=== PATIENT | male | born 1965 | race Caucasian/White ===

== ENCOUNTER 2018-04-08 08:12 | Emergency (ER) | payer OTHER, SELFPAY ==
[2018-04-08 08:26] VITALS: BP 170/111; PULSE 94; RESP 16; TEMP 36.9; O2SAT 100; BMI 27.2
--- NOTE | 2018-04-08 09:02 | ED.ABDPAIN ---
HPI - Abdominal Pain General Chief Complaint: Abdominal Pain Stated Complaint: RECTAL PROBLEMS Time Seen by Provider: 04/08/18 08:43 Source: patient Mode of arrival: ambulatory Limitations: no limitations History of Present Illness HPI narrative: patient is a 53 year old male who presents with rectal pain. It has been ongoing for about 4 days. He says progressively getting a little bit worse. His he feels like there is something inside his rectum. He has no painful bowel movements no bloody bowel movements. No fever or chills. As he is supposed to going to trip tomorrow that he has been planning for 2 years. he denies any nausea vomiting or abdominal pain. MD complaint: other ( Rectal pain) Onset (ago): day(s) Pain Consistency: constant Quality: fullness Associated symptoms: denies other symptoms Related Data Previous Rx's Medication Instructions Recorded levofloxacin [Levaquin] 750 mg PO DAILY #7 tab 04/08/18 metronidazole [Flagyl] 500 mg PO TID #21 tab 04/08/18 Allergies Allergy/AdvReac Type Severity Reaction Status Date / Time No Known Drug Allergies Allergy Verified 04/08/18 08:26 Review of Systems Review of Systems GENERAL: Denies chills, fatigue, malaise, fever, sweats, travel HEENT: Denies sinus pain, ear pain, sore throat, difficulty swallowing, neck pain RESPIRATORY: Denies dyspnea, cough, wheezing, hemoptysis, sputum. CARDIOVASCULAR: Denies chest pain, palpitations, orthopnea, edema GASTROINTESTINAL: see HPI : Denies dysuria, frequency, incontinence, hematuria, urinary retention, flank pain. MUSCULOSKELETAL: Denies weakness, joint pain, or bony pain SKIN: No rash, no erythema, no pruritus NEUROLOGIC: Denies weakness, dizziness, headache, numbness, change in speech, confusion PSYCHIATRIC: No concerning psychosocial issues. 12 point review of systems is negative except for those stated above and HPI PFSH Medical History Hypertension (Chronic) Social History Smoking Status: Never smoker alcohol intake: current substance use type: does not use Social History Smoking Status: Never smoker alcohol intake: current substance use type: does not use Exam Initial Vital Signs Initial Vital Signs: Vital Signs Temperature 98.5 F 04/08/18 08:26 Pulse Rate 94 H 04/08/18 08:26 Respiratory Rate 16 04/08/18 08:26 Blood Pressure 170/111 H 04/08/18 08:26 Pulse Oximetry 100 04/08/18 08:26 GENERAL: alert well-appearing male no acute distress HEENT: Head atraumatic,EOMI, pupils reactive CARDIOVASCULAR: Regular rate and rhythm without murmurs, rubs or gallops. RESPIRATORY: Breath sounds equal bilaterally, no wheezes rales or rhonchi. ABDOMEN: Soft, nontender. Normoactive bowel sounds all 4 quadrants. No guarding or rebound. RECTAL: Fullness in rectum right is 2 to 3:00 position. Nontender exterior has skin tag no hemorrhoid : No CVA tenderness EXTREMITIES: Normal range of motion, no clubbing or edema. Neurovascularly intact NEUROLOGICAL: Alert and oriented x4.Normal gait and speech. SKIN: Warm, dry, no laceration, no petechiae, no rashes or lesions. Course Orders Ordered: ED Orders 04/08/18 09:08 CT abdomen pelvis w con Stat 04/08/18 09:15 Complete Blood Count AUTO DIFF Stat Comprehensive Metabolic Panel Stat Lipase Stat Vital Signs - 8 hr 04/08/18 08:26 04/08/18 12:29 Temperature 98.5 F Pulse Rate 94 H 77 Respiratory Rate 16 18 Blood Pressure 170/111 H 156/87 H Pulse Oximetry 100 100 MDM - Abdominal Pain Lab Data Attestation: I reviewed the patient's lab results. Result diagrams: 04/08/18 09:15 04/08/18 09:15 Lab Results 04/08/18 04/08/18 Range/Units 09:15 09:15 WBC 9.1 (4.5-11.0) X10^3/uL RBC 4.80 (4.5-5.9) X10^6/uL Hgb 15.3 (13.5-17.5) g/dL Hct 43.5 (41-53) % MCV 90.7 (80-100) fL MCH 31.8 (26-34) PG MCHC 35.1 (30-36) % RDW 12.3 (11.6-14.8) % Plt Count 207 (150-400) X10^3/uL Neut % (Auto) 71.0 (50-75) % Lymph % (Auto) 19.3 L (25-40) % Prentiss % (Auto) 8.1 (3-14) % Eos % (Auto) 0.8 L (2-4) % Baso % (Auto) 0.8 (0-2) % Neut # (Auto) 6400 (9183-9789) /uL Lymph # (Auto) 1700 (6178-2506) /uL Prentiss # (Auto) 700 (0-900) /uL Eos # (Auto) 100 (0-450) /uL Baso # (Auto) 100 (0-100) /uL Sodium 137 (137-145) mmol/L Potassium 4.0 (3.4-5.1) mmol/L Chloride 100 (98-107) mmol/L Carbon Dioxide 24 (22-32) mmol/L BUN 12 (9-20) mg/dL Creatinine 0.90 (0.66-1.25) mg/dL Estimated GFR > 60.0 (>60) mL/min BUN/Creatinine Ratio 13.3 (6-22) Glucose 111 H (70-100) mg/dL Calcium 8.9 (8.4-10.2) mg/dL Total Bilirubin 0.6 (0.2-1.3) mg/dL AST 39 (17-59) IU/L ALT 58 (21-72) IU/L Alkaline Phosphatase 86 (38-126) U/L Total Protein 8.3 H (6.3-8.2) g/dL Albumin 4.6 (3.5-5.0) g/dL Globulin 3.7 (1.7-4.1) g/dL Albumin/Globulin Ratio 1.2 (1.0-2.8) Lipase 103 (23-300) U/L Imaging Data CT scan - abdomen: Radiologist's impression: PROCEDURE: CT ABDOMEN PELVIS W CON INDICATIONS: rectal pain TECHNIQUE: After the administration of oral, rectal, and intravenous contrast, 5 mm thick sections acquired from the diaphragms to the symphysis. 5 mm thick coronal and sagittal reformats were performed. For radiation dose reduction, the following was used: automated exposure control, adjustment of mA and/or kV according to patient size. COMPARISON: None. FINDINGS: Image quality: Excellent. ABDOMEN: Lung bases: Lung bases are clear. Heart size is normal. Solid organs: A small cyst in the inferior right hepatic lobe as well as additional small hypodense foci in the liver which are too small to characterize but likely represent cysts. Gallbladder appears within normal limits without calcified gallstones. Biliary system is non-dilated. Pancreas enhances normally. Spleen is normal in size and enhancement. No adrenal nodules. Kidneys demonstrate no hydronephrosis. Peritoneum and bowel: Stomach and small bowel loops are normal in caliber and wall thickness. The appendix is normal in appearance. There is mild wall thickening within the posterior aspect of the distal rectum with a peripherally enhancing indistinct perianal collection at the 6:00 position measuring approximately 1.7 x 1.4 x 2.3 cm. No evidence of extension into the ischiorectal fat. The remainder of the colon is normal in wall thickness. No intraperitoneal fluid collections. No free fluid or air. Nodes and vessels: No retroperitoneal or mesenteric adenopathy. Aorta and inferior vena cava are normal in caliber. Miscellaneous: No ventral hernias. PELVIS: Genitourinary: Bladder wall thickness is normal. Miscellaneous: No inguinal hernias or adenopathy. Bones: No suspicious bony lesions. No vertebral body compression fractures. IMPRESSION: 1. Small perianal abscess at the 6:00 position as described. 2. No intraperitoneal or supralevator abscess collection identified. Dictated by: Viet Cortes M.D. on 04/08/2018 at 11:00 [facility] Narrative Medical decision making narrative: 11:55 a.m. I spoke with Dr. Rico, at this time no surgical intervention recommends antibiotics does not recommend going on trip to remote destination. Patient understands may need surgical intervention however not at this time. he is agreeable to go home and try conservative outpatient antibiotic treatment. Discharge Plan Departure Patient Disposition: Home Clinical Impression: Abscess of anal or rectal region Discharge Date/Time: 04/08/18 12:20 Interventions: ED Discharge Assessment Last Done: 04/08/18 12:29 Instructions: DI for Anal Abscess Activity Restrictions/Additional Instructions: *You have been diagnosed with Rectal abscess *What to do: you may still require surgical intervention of antibiotics do not help. This abscess may be progressively getting bigger is as well. *Continue to take medications as directed Levaquin 750 mg once daily for 7 days Flagyl 500 mg 3 times a day for 7 days- do not drink alcohol while taking this recommend [id number] stool softener *Follow up with your primary care provider in 2-3 days *Return to ER if you should have fever, shakes, increasing pain or any new, worsening or concerning symptoms Prescriptions: New metronidazole [Flagyl] 500 mg tablet 500 mg PO TID Qty: 21 RF: 0 levofloxacin [Levaquin] 750 mg tablet 750 mg PO DAILY Qty: 7 RF: 0 Referrals: Gus Rico MD [Physician] -
--- NOTE | 2018-04-08 09:08 | DI.CT.S_ITS ---
PROCEDURE: CT ABDOMEN PELVIS W CON INDICATIONS: rectal pain TECHNIQUE: After the administration of oral, rectal, and intravenous contrast, 5 mm thick sections acquired from the diaphragms to the symphysis. 5 mm thick coronal and sagittal reformats were performed. For radiation dose reduction, the following was used: automated exposure control, adjustment of mA and/or kV according to patient size. COMPARISON: None. FINDINGS: Image quality: Excellent. ABDOMEN: Lung bases: Lung bases are clear. Heart size is normal. Solid organs: A small cyst in the inferior right hepatic lobe as well as additional small hypodense foci in the liver which are too small to characterize but likely represent cysts. Gallbladder appears within normal limits without calcified gallstones. Biliary system is non-dilated. Pancreas enhances normally. Spleen is normal in size and enhancement. No adrenal nodules. Kidneys demonstrate no hydronephrosis. Peritoneum and bowel: Stomach and small bowel loops are normal in caliber and wall thickness. The appendix is normal in appearance. There is mild wall thickening within the posterior aspect of the distal rectum with a peripherally enhancing indistinct perianal collection at the 6:00 position measuring approximately 1.7 x 1.4 x 2.3 cm. No evidence of extension into the ischiorectal fat. The remainder of the colon is normal in wall thickness. No intraperitoneal fluid collections. No free fluid or air. Nodes and vessels: No retroperitoneal or mesenteric adenopathy. Aorta and inferior vena cava are normal in caliber. Miscellaneous: No ventral hernias. PELVIS: Genitourinary: Bladder wall thickness is normal. Miscellaneous: No inguinal hernias or adenopathy. Bones: No suspicious bony lesions. No vertebral body compression fractures. IMPRESSION: 1. Small perianal abscess at the 6:00 position as described. 2. No intraperitoneal or supralevator abscess collection identified. Dictated by: Viet Cortes M.D. on 04/08/2018 at 11:00 Approved by: Viet Cortes M.D. on 04/08/2018 at 11:05
[2018-04-08 09:26] LABS: Add Manual Diff / Slide Review NO; Basophils Absolute Auto 100 /uL (0-100); Basophils Percent Auto 0.8 % (0-2); Eosinophils Absolute Auto 100 /uL (0-450); Eosinophils Percent Auto 0.8 % (2-4); Hematocrit 43.5 % (41-53); Hemoglobin 15.3 g/dL (13.5-17.5); Lymphocytes Absolute Auto 1700 /uL (1100-4500); Lymphocytes Percent Auto 19.3 % (25-40); Mean Corpuscular HGB Conc 35.1 % (30-36); Mean Corpuscular Hemoglobin 31.8 PG (26-34); Mean Corpuscular Volume 90.7 fL (80-100); Monocytes Absolute Auto 700 /uL (0-900); Monocytes Percent Auto 8.1 % (3-14); Neutrophils Absolute Auto 6400 /uL (1500-7000); Platelet Count 207 X10^3/uL (150-400); Red Cell Distribution Width 12.3 % (11.6-14.8); White Blood Cell Count 9.1 X10^3/uL (4.5-11.0)
[2018-04-08 09:42] LABS: Alanine Aminotransferase 58 IU/L (21-72); Albumin 4.6 g/dL (3.5-5.0); Albumin Globulin Ratio 1.2 (1.0-2.8); Alkaline Phosphatase 86 U/L (38-126); Aspartate Aminotransferase 39 IU/L (17-59); BUN Creatinine Ratio 13.3 (6-22); Bilirubin Total 0.6 mg/dL (0.2-1.3); Blood Urea Nitrogen 12 mg/dL (9-20); Calcium 8.9 mg/dL (8.4-10.2); Carbon Dioxide 24 mmol/L (22-32); Chloride 100 mmol/L (98-107); Estimated Glomerular Filt Rate > 60.0 mL/min (>60); Globulin 3.7 g/dL (1.7-4.1); Glucose 111 mg/dL (70-100); HEMOLYSIS < 15 (0-50); Lipase 103 U/L (23-300); Sodium 137 mmol/L (137-145); Total Protein 8.3 g/dL (6.3-8.2)
[2018-04-08 12:29] VITALS: BP 156/87; PULSE 77; RESP 18; O2SAT 100
== END 2018-04-08 12:20 | disposition home or self-care (01) ==
PROVIDERS: Emergency Provider Emergency Medicine
DX: K61.2 Anorectal abscess (principal)
CPT/HCPCS: 36591; 74177; 80053; 83690; 85025; 99283; 99285; Q9967

== ENCOUNTER 2018-04-09 10:59 | Day surgery (SDC) | payer OTHER, SELFPAY ==
[2018-04-09] VITALS (12 sets, daily range): BP systolic 121–149; BP diastolic 70–102; PULSE 79–98; RESP 14–20; TEMP 35.9–36.8; O2SAT 94–100; BMI 27.2
[2018-04-09 12:30] LABS: Add Manual Diff / Slide Review NO; Basophils Absolute Auto 0 /uL (0-100); Basophils Percent Auto 0.3 % (0-2); Eosinophils Absolute Auto 100 /uL (0-450); Eosinophils Percent Auto 0.6 % (2-4); Hematocrit 44.4 % (41-53); Hemoglobin 15.2 g/dL (13.5-17.5); Lymphocytes Absolute Auto 1800 /uL (1100-4500); Lymphocytes Percent Auto 15.6 % (25-40); Mean Corpuscular HGB Conc 34.3 % (30-36); Mean Corpuscular Hemoglobin 31.4 PG (26-34); Mean Corpuscular Volume 91.8 fL (80-100); Monocytes Absolute Auto 900 /uL (0-900); Monocytes Percent Auto 7.9 % (3-14); Neutrophils Absolute Auto 8900 /uL (1500-7000); Neutrophils Percent Auto 75.6 % (50-75); Platelet Count 221 X10^3/uL (150-400); Red Blood Cell Count 4.84 X10^6/uL (4.5-5.9); Red Cell Distribution Width 12.5 % (11.6-14.8); White Blood Cell Count 11.8 X10^3/uL (4.5-11.0)
[2018-04-09 12:35] LABS: Lactate (Lactic Acid) 1.2 mmol/L (0.7-2.1)
[2018-04-09 12:36] LABS: Alanine Aminotransferase 55 IU/L (21-72); Albumin 4.4 g/dL (3.5-5.0); Albumin Globulin Ratio 1.2 (1.0-2.8); Alkaline Phosphatase 86 U/L (38-126); Aspartate Aminotransferase 38 IU/L (17-59); BUN Creatinine Ratio 13.3 (6-22); Bilirubin Total 0.9 mg/dL (0.2-1.3); Blood Urea Nitrogen 12 mg/dL (9-20); Calcium 9.2 mg/dL (8.4-10.2); Carbon Dioxide 25 mmol/L (22-32); Chloride 101 mmol/L (98-107); Estimated Glomerular Filt Rate > 60.0 mL/min (>60); Globulin 3.6 g/dL (1.7-4.1); Glucose 108 mg/dL (70-100); HEMOLYSIS < 15 (0-50); Sodium 137 mmol/L (137-145)
--- NOTE | 2018-04-09 12:43 | ED.SKABFB ---
HPI - Skin/Abscess/Foreign Bdy <LOYD Clark - Last Filed: 04/09/18 22:07> General Chief complaint: Skin/Abscess/Foreign Body Stated complaint: ANAL ABCESS,INCREASE PAIN,FEVER Time Seen by Provider: 04/09/18 12:13 Source: patient Mode of arrival: ambulatory Limitations: no limitations History of Present Illness HPI narrative: 53-year-old male with history of hypertension and is a nonsmoker here for repeat visit due to pain into the rectal area over the past several days. He was seen in the emergency room yesterday and had a CT and was diagnosed with a an anal abscess. He was placed on antibiotics and is currently awaiting to see surgical services for further treatment and surgical drainage. He reports he has increased pain and swelling to the rectal area over the past 24 hr with chills last night. He denies any drainage from the area. No trauma to the area. He reports that he has been taking his antibiotics as directed. He call the surgical office today and when he told of worsening symptoms they told her come to the emergency room. MD complaint: abscess/boil Related Data Home Medications Medication Instructions Recorded Confirmed acyclovir 400 mg PO [id number] PRN 04/09/18 04/09/18 Previous Rx's Medication Instructions Recorded levofloxacin [Levaquin] 750 mg PO DAILY #7 tab 04/08/18 metronidazole [Flagyl] 500 mg PO TID #21 tab 04/08/18 acetaminophen [Tylenol 8 Hour] 650 mg PO Q8H PRN #60 tab 04/09/18 docusate sodium [Colace] 100 mg PO BID #14 cap 04/09/18 oxycodone 5 mg PO Q3H PRN #40 tab 04/09/18 sennosides [Senokot] 8.6 mg PO BEDTIME #10 tab 04/09/18 Allergies Allergy/AdvReac Type Severity Reaction Status Date / Time No Known Drug Allergies Allergy Verified 04/09/18 11:12 Review of Systems <LOYD Clark - Last Filed: 04/09/18 22:07> Constitutional Reports chills and Denies fatigue Eyes Denies change in vision, Denies eye discharge, Denies irritation and Denies loss of vision ENT Ears, Nose, Mouth, and Throat: Denies change in voice, Denies neck pain and Denies sore throat Cardiovascular Denies dyspnea and Denies dyspnea on exertion Respiratory Denies cough, Denies dyspnea, Denies dyspnea on exertion and Denies wheezing Gastrointestinal Comments: Anal abscess Genitourinary Denies hematuria, Denies flank pain, Denies urinary incontinence and Denies urinary urgency Musculoskeletal Denies neck pain Integumentary/Breasts Denies pruritus, Denies erythema, Denies rash and Denies wounds Neurologic Denies confusion and Denies loss of vision Psychiatric Denies anxiety, Denies confusion, Denies depression, Denies homicidal ideation and Denies suicidal ideation Endocrine Denies fatigue and Denies flushing Hematologic/Lymphatic Denies easy bruising Allergic/Immunologic Denies wheezing PFSH <LOYD Clark - Last Filed: 04/09/18 22:07> Medical History No significant past surgical history (Acute) Hypertension (Chronic) Social History Smoking Status: Never smoker alcohol intake: current substance use type: does not use Social History marital status: household members: spouse occupational status: employed Smoking Status: Never smoker alcohol intake: current substance use type: does not use Exam <LOYD Clark - Last Filed: 04/09/18 22:07> Initial Vital Signs Initial Vital Signs: Vital Signs Temperature 97.6 F 04/09/18 11:10 Pulse Rate 84 04/09/18 11:10 Respiratory Rate 14 04/09/18 11:10 Blood Pressure 149/102 H 04/09/18 11:10 Pulse Oximetry 95 04/09/18 11:10 Const General: cooperative and well developed Nutritional Appearance: well nourished Orientation: alert, awake, oriented x3 and not confused [facility] Mouth: oral mucosae normal and moist mucous membranes Eyes Conjunctivae: conjunctivae normal Sclera: sclerae normal Pupils: PERRL EOM: EOM intact bilaterally Resp Effort & Inspection: normal respiratory effort, able to speak in complete sentences, no respiratory distress and no use of accessory muscles Auscultation: clear to auscultation bilaterally, no rales, no rhonchi and no wheezes Cardio Rate: regular rate Rhythm: regular rhythm Heart Sounds: no click, no gallops, no murmurs and no rubs Pulses: normal peripheral pulses GI Inspection: non-distended Palpation: soft, no hepatosplenomegaly, No guarding, No pulsatile mass and No tender Auscultation: normal bowel sounds Rectal Exam: normal sphincter tone, No hemorrhoids, No laceration, No lesions and tenderness Other: Anal/ rectal Rectal exam shows tenderness and induration to the 12:00 p.m. to the 2 o'clock position <Sydnee Bland DO - Last Filed: 04/13/18 02:45> Initial Vital Signs Initial Vital Signs: Vital Signs Temperature 97.6 F 04/09/18 11:10 Pulse Rate 84 04/09/18 11:10 Respiratory Rate 14 04/09/18 11:10 Blood Pressure 149/102 H 04/09/18 11:10 Pulse Oximetry 95 04/09/18 11:10 Course <LOYD Clark - Last Filed: 04/09/18 22:07> Orders Ordered: Discontinued Medications Albuterol (Ventolin) 2.5 mg INH NOW PRN PRN Reason: Coughing, Wheezing, Dyspnea Bupivacaine HCl (Sensorcaine 0.5% (Pf)) 30 ml INJ NOW ONE Stop: 04/09/18 16:06 Last Admin: 04/09/18 16:05 Dose: 15 ml Dibucaine (Nupercainal 1% Oint) 1 applic TOP NOW ONE Stop: 04/09/18 16:14 Last Admin: 04/09/18 16:13 Dose: 1 applic Fentanyl (Sublimaze) 50 mcg IV Q5MIN PRN PRN Reason: Pain, Moderate (4-6) Hydromorphone HCl (Dilaudid) 0.5 mg IV Q5MIN PRN PRN Reason: Pain, Moderate (4-6) Cefotetan Disodium/Dextrose (Cefotan) 2 gm in 50 mls @ 100 mls/hr IV NOW ONE Stop: 04/09/18 15:21 Last Infusion: 04/09/18 15:35 Dose: 0 mls/hr Admin: 04/09/18 15:30 Dose: 100 mls/hr Sodium Chloride (Normal Saline 0.9%) 1,000 mls @ 100 mls/hr IV CONT CAL Last Infusion: 04/09/18 17:13 Dose: 0 mls/hr Admin: 04/09/18 14:45 Dose: 100 mls/hr Lactated Ringer's (Lactated Ringers) 1,000 mls @ 42 mls/hr IV CONT CAL Lidocaine/Epinephrine (Xylocaine 1% W/Epi) 20 ml INJ NOW ONE Stop: 04/09/18 16:06 Last Admin: 04/09/18 16:06 Dose: 15 ml Meperidine HCl (Demerol) 25 mg IV Q5MIN PRN PRN Reason: Pain or shivering Last Admin: 04/09/18 16:30 Dose: 25 mg Midazolam HCl (Versed) 2 mg IV NOW ONE Stop: 04/09/18 15:11 Last Admin: 04/09/18 15:14 Dose: 2 mg Ondansetron HCl (Zofran) 4 mg IV NOW PRN PRN Reason: Nausea And Vomiting Vital Signs - 8 hr 04/09/18 14:54 04/09/18 16:27 04/09/18 16:33 Temperature 98.3 F 96.7 F L Pulse Rate 88 98 H 98 H Respiratory Rate 20 14 16 Blood Pressure 144/91 H 130/70 147/88 H Pulse Oximetry 99 99 98 04/09/18 16:37 04/09/18 16:42 04/09/18 16:47 Temperature 97.7 F Pulse Rate 95 H 88 88 Respiratory Rate 18 18 18 Blood Pressure 138/83 127/86 132/84 Pulse Oximetry 98 97 94 04/09/18 17:07 Temperature 97.7 F Pulse Rate 84 Respiratory Rate 16 Blood Pressure 121/82 Pulse Oximetry 94 <Sydnee Bland, - Last Filed: 04/13/18 02:45> Orders Ordered: Discontinued Medications Albuterol (Ventolin) 2.5 mg INH NOW PRN PRN Reason: Coughing, Wheezing, Dyspnea Bupivacaine HCl (Sensorcaine 0.5% (Pf)) 30 ml INJ NOW ONE Stop: 04/09/18 16:06 Last Admin: 04/09/18 16:05 Dose: 15 ml Dibucaine (Nupercainal 1% Oint) 1 applic TOP NOW ONE Stop: 04/09/18 16:14 Last Admin: 04/09/18 16:13 Dose: 1 applic Fentanyl (Sublimaze) 50 mcg IV Q5MIN PRN PRN Reason: Pain, Moderate (4-6) Hydromorphone HCl (Dilaudid) 0.5 mg IV Q5MIN PRN PRN Reason: Pain, Moderate (4-6) Cefotetan Disodium/Dextrose (Cefotan) 2 gm in 50 mls @ 100 mls/hr IV NOW ONE Stop: 04/09/18 15:21 Last Infusion: 04/09/18 15:35 Dose: 0 mls/hr Admin: 04/09/18 15:30 Dose: 100 mls/hr Sodium Chloride (Normal Saline 0.9%) 1,000 mls @ 100 mls/hr IV CONT CAL Last Infusion: 04/09/18 17:13 Dose: 0 mls/hr Admin: 04/09/18 14:45 Dose: 100 mls/hr Lactated Ringer's (Lactated Ringers) 1,000 mls @ 42 mls/hr IV CONT CAL Lidocaine/Epinephrine (Xylocaine 1% W/Epi) 20 ml INJ NOW ONE Stop: 04/09/18 16:06 Last Admin: 04/09/18 16:06 Dose: 15 ml Meperidine HCl (Demerol) 25 mg IV Q5MIN PRN PRN Reason: Pain or shivering Last Admin: 04/09/18 16:30 Dose: 25 mg Midazolam HCl (Versed) 2 mg IV NOW ONE Stop: 04/09/18 15:11 Last Admin: 04/09/18 15:14 Dose: 2 mg Ondansetron HCl (Zofran) 4 mg IV NOW PRN PRN Reason: Nausea And Vomiting Vital Signs - 8 hr 04/09/18 14:54 04/09/18 16:27 04/09/18 16:33 Temperature 98.3 F 96.7 F L Pulse Rate 88 98 H 98 H Respiratory Rate 20 14 16 Blood Pressure 144/91 H 130/70 147/88 H Pulse Oximetry 99 99 98 04/09/18 16:37 04/09/18 16:42 04/09/18 16:47 Temperature 97.7 F Pulse Rate 95 H 88 88 Respiratory Rate 18 18 18 Blood Pressure 138/83 127/86 132/84 Pulse Oximetry 98 97 94 04/09/18 17:07 Temperature 97.7 F Pulse Rate 84 Respiratory Rate 16 Blood Pressure 121/82 Pulse Oximetry 94 MDM - Skin/Abscess/Foreign Bdy <LOYD Clark - Last Filed: 04/09/18 22:07> Lab Data Result diagrams: 04/09/18 12:00 04/09/18 12:00 Lab Results 04/09/18 04/09/18 04/09/18 Range/Units 12:00 12:00 12:00 WBC 11.8 H (4.5-11.0) X10^3/uL RBC 4.84 (4.5-5.9) X10^6/uL Hgb 15.2 (13.5-17.5) g/dL Hct 44.4 (41-53) % MCV 91.8 (80-100) fL MCH 31.4 (26-34) PG MCHC 34.3 (30-36) % RDW 12.5 (11.6-14.8) % Plt Count 221 (150-400) X10^3/uL Neut % (Auto) 75.6 H (50-75) % Lymph % (Auto) 15.6 L (25-40) % Barron % (Auto) 7.9 (3-14) % Eos % (Auto) 0.6 L (2-4) % Baso % (Auto) 0.3 (0-2) % Neut # (Auto) 8900 H (7535-2766) /uL Lymph # (Auto) 1800 (9604-8493) /uL Barron # (Auto) 900 (0-900) /uL Eos # (Auto) 100 (0-450) /uL Baso # (Auto) 0 (0-100) /uL Sodium 137 (137-145) mmol/L Potassium 4.0 (3.4-5.1) mmol/L Chloride 101 (98-107) mmol/L Carbon Dioxide 25 (22-32) mmol/L BUN 12 (9-20) mg/dL Creatinine 0.90 (0.66-1.25) mg/dL Estimated GFR > 60.0 (>60) mL/min BUN/Creatinine Ratio 13.3 (6-22) Glucose 108 H (70-100) mg/dL Lactate 1.2 (0.7-2.1) mmol/L Calcium 9.2 (8.4-10.2) mg/dL Total Bilirubin 0.9 (0.2-1.3) mg/dL AST 38 (17-59) IU/L ALT 55 (21-72) IU/L Alkaline Phosphatase 86 (38-126) U/L Total Protein 8.0 (6.3-8.2) g/dL Albumin 4.4 (3.5-5.0) g/dL Globulin 3.6 (1.7-4.1) g/dL Albumin/Globulin Ratio 1.2 (1.0-2.8) Procalcitonin (<0.5) ng/mL 04/09/18 Range/Units 12:00 WBC (4.5-11.0) X10^3/uL RBC (4.5-5.9) X10^6/uL Hgb (13.5-17.5) g/dL Hct (41-53) % MCV (80-100) fL MCH (26-34) PG MCHC (30-36) % RDW (11.6-14.8) % Plt Count (150-400) X10^3/uL Neut % (Auto) (50-75) % Lymph % (Auto) (25-40) % Barron % (Auto) (3-14) % Eos % (Auto) (2-4) % Baso % (Auto) (0-2) % Neut # (Auto) (2796-3165) /uL Lymph # (Auto) (1660-7901) /uL Barron # (Auto) (0-900) /uL Eos # (Auto) (0-450) /uL Baso # (Auto) (0-100) /uL Sodium (137-145) mmol/L Potassium (3.4-5.1) mmol/L Chloride (98-107) mmol/L Carbon Dioxide (22-32) mmol/L BUN (9-20) mg/dL Creatinine (0.66-1.25) mg/dL Estimated GFR (>60) mL/min BUN/Creatinine Ratio (6-22) Glucose (70-100) mg/dL Lactate (0.7-2.1) mmol/L Calcium (8.4-10.2) mg/dL Total Bilirubin (0.2-1.3) mg/dL AST (17-59) IU/L ALT (21-72) IU/L Alkaline Phosphatase (38-126) U/L Total Protein (6.3-8.2) g/dL Albumin (3.5-5.0) g/dL Globulin (1.7-4.1) g/dL Albumin/Globulin Ratio (1.0-2.8) Procalcitonin < 0.05 (<0.5) ng/mL MDM Narrative Medical decision making narrative: CBC shows mildly elevated white count of 11.8. and elevated neutrophils otherwise is unremarkable. procalcitonin and lactate were unremarkable. Chemistry panel was unremarkable. Discussed case with Dr. Trisha bustamante who evaluated patient and his taking patient to the operating room today. Patient is admitted to the hospital via OR <Sydnee Bland DO - Last Filed: 04/13/18 02:45> Lab Data Lab Results 04/09/18 04/09/18 04/09/18 Range/Units 12:00 12:00 12:00 WBC 11.8 H (4.5-11.0) X10^3/uL RBC 4.84 (4.5-5.9) X10^6/uL Hgb 15.2 (13.5-17.5) g/dL Hct 44.4 (41-53) % MCV 91.8 (80-100) fL MCH 31.4 (26-34) PG MCHC 34.3 (30-36) % RDW 12.5 (11.6-14.8) % Plt Count 221 (150-400) X10^3/uL Neut % (Auto) 75.6 H (50-75) % Lymph % (Auto) 15.6 L (25-40) % Barron % (Auto) 7.9 (3-14) % Eos % (Auto) 0.6 L (2-4) % Baso % (Auto) 0.3 (0-2) % Neut # (Auto) 8900 H (4185-5308) /uL Lymph # (Auto) 1800 (7046-0727) /uL Barron # (Auto) 900 (0-900) /uL Eos # (Auto) 100 (0-450) /uL Baso # (Auto) 0 (0-100) /uL Sodium 137 (137-145) mmol/L Potassium 4.0 (3.4-5.1) mmol/L Chloride 101 (98-107) mmol/L Carbon Dioxide 25 (22-32) mmol/L BUN 12 (9-20) mg/dL Creatinine 0.90 (0.66-1.25) mg/dL Estimated GFR > 60.0 (>60) mL/min BUN/Creatinine Ratio 13.3 (6-22) Glucose 108 H (70-100) mg/dL Lactate 1.2 (0.7-2.1) mmol/L Calcium 9.2 (8.4-10.2) mg/dL Total Bilirubin 0.9 (0.2-1.3) mg/dL AST 38 (17-59) IU/L ALT 55 (21-72) IU/L Alkaline Phosphatase 86 (38-126) U/L Total Protein 8.0 (6.3-8.2) g/dL Albumin 4.4 (3.5-5.0) g/dL Globulin 3.6 (1.7-4.1) g/dL Albumin/Globulin Ratio 1.2 (1.0-2.8) Procalcitonin (<0.5) ng/mL 04/09/18 Range/Units 12:00 WBC (4.5-11.0) X10^3/uL RBC (4.5-5.9) X10^6/uL Hgb (13.5-17.5) g/dL Hct (41-53) % MCV (80-100) fL MCH (26-34) PG MCHC (30-36) % RDW (11.6-14.8) % Plt Count (150-400) X10^3/uL Neut % (Auto) (50-75) % Lymph % (Auto) (25-40) % Barron % (Auto) (3-14) % Eos % (Auto) (2-4) % Baso % (Auto) (0-2) % Neut # (Auto) (8788-6334) /uL Lymph # (Auto) (4343-3167) /uL Barron # (Auto) (0-900) /uL Eos # (Auto) (0-450) /uL Baso # (Auto) (0-100) /uL Sodium (137-145) mmol/L Potassium (3.4-5.1) mmol/L Chloride (98-107) mmol/L Carbon Dioxide (22-32) mmol/L BUN (9-20) mg/dL Creatinine (0.66-1.25) mg/dL Estimated GFR (>60) mL/min BUN/Creatinine Ratio (6-22) Glucose (70-100) mg/dL Lactate (0.7-2.1) mmol/L Calcium (8.4-10.2) mg/dL Total Bilirubin (0.2-1.3) mg/dL AST (17-59) IU/L ALT (21-72) IU/L Alkaline Phosphatase (38-126) U/L Total Protein (6.3-8.2) g/dL Albumin (3.5-5.0) g/dL Globulin (1.7-4.1) g/dL Albumin/Globulin Ratio (1.0-2.8) Procalcitonin < 0.05 (<0.5) ng/mL Discharge Plan Departure Patient Disposition: Admitted As Inpatient Clinical Impression: Abscess of anal or rectal region Discharge Date/Time: 04/09/18 14:42 Interventions: ED Discharge Assessment Last Done: 04/09/18 14:42 <Sydnee Bland DO - Last Filed: 04/13/18 02:45> Cosign ED Attending Cosignature Attestation: I was immediately available in the department for consultation. This documentation has been reviewed and I agree with assessment and plan. Supervised by Sydnee Bland DO
[2018-04-09 13:26] LABS: Procalcitonin < 0.05 ng/mL (<0.5)
--- NOTE | 2018-04-09 14:12 | PM.HP.1 ---
History of Present Illness Date Patient Seen: 04/09/18 Time Patient Seen: 14:12 Chief complaint: ANAL ABCESS,INCREASE PAIN,FEVER Narrative: 53-year-old male who presented the emergency department yesterday with 3 day history of perianal pain and pressure. His examination as well as CT scan at that time suggested of small 1.7 cm perianal abscess with no significant fluid component. No other abnormalities were noted. Patient was begun on analgesics as well as Levaquin and Flagyl. He returns today to the emergency department with progressive perianal pain. States that he had some night sweats last evening with occasional chills but no particular fever. No nausea or vomiting. His pain is essentially unchanged, but his major concern is of progressive abscess or fistula. He has had otherwise normal bowel function although some pain with defecation. No drainage from the anal area. No incontinence. No blood per rectum. No abdominal pain elsewhere. No difficulties with urination. No prior history of any similar episodes. Patient History Medical History No significant past surgical history (Acute) Hypertension (Chronic) Social History Smoking Status: Never smoker alcohol intake: current substance use type: does not use Family & Social History Safety & Behavioral: Feels Safe in Current Yes Environment Been Physically Hurt or No Threatened By a Person Tobacco & Substance use: Smoking Status Never smoker alcohol intake current alcohol intake frequency 0-2 drinks per day Substance Use Type does not use Meds Home Medications Medication Instructions Recorded Confirmed Type levofloxacin [Levaquin] 750 mg PO DAILY #7 tab 04/08/18 04/09/18 Rx metronidazole [Flagyl] 500 mg PO TID #21 tab 04/08/18 04/09/18 Rx acyclovir 400 mg PO [id number] PRN 04/09/18 04/09/18 History Allergies Allergy/AdvReac Type Severity Reaction Status Date / Time No Known Drug Allergies Allergy Verified 04/09/18 11:12 Review of Systems Review of Systems All systems reviewed & are unremarkable except as noted in HPI and below Exam Vital Signs (past 8 hours): - 04/09/18 11:10 04/09/18 12:00 04/09/18 13:00 Temperature 97.6 F Pulse Rate 84 79 Respiratory Rate 14 17 Blood Pressure 149/102 H Blood Pressure [Left Arm] 145/92 H 138/88 Pulse Oximetry 95 98 Oxygen Delivery Method Room Air Narrative Exam Narrative: Well-nourished well-developed male in no acute distress. Alert oriented x3. Sitting comfortably on the gurney in the emergency department at the time of my visit. No fevers here in the emergency department. No tachycardia. Blood pressure mildly elevated. Sclera nonicteric Regular rate and rhythm Abdomen soft, nondistended, nontender Extremities show no clubbing, cyanosis, or edema Rectal: There is a right anterior inflamed external hemorrhoid with no significant evidence of thrombosis. There is a fullness extending from this level to the posterior midline. Formal digital rectal examination is deferred due to patient discomfort. No perianal masses. No obvious fissures. No expressible drainage on cursory exam. Objective Labs Result Diagrams: 04/09/18 12:00 04/09/18 12:00 Labs: Laboratory Results - last 24 hr 04/09/18 04/09/18 04/09/18 12:00 12:00 12:00 WBC 11.8 H RBC 4.84 Hgb 15.2 Hct 44.4 MCV 91.8 MCH 31.4 MCHC 34.3 RDW 12.5 Plt Count 221 Neut % (Auto) 75.6 H Lymph % (Auto) 15.6 L [place] % (Auto) 7.9 Eos % (Auto) 0.6 L Baso % (Auto) 0.3 Neut # (Auto) 8900 H Lymph # (Auto) 1800 [place] # (Auto) 900 Eos # (Auto) 100 Baso # (Auto) 0 Sodium 137 Potassium 4.0 Chloride 101 Carbon Dioxide 25 BUN 12 Creatinine 0.90 Estimated GFR > 60.0 BUN/Creatinine Ratio 13.3 Glucose 108 H Lactate 1.2 Calcium 9.2 Total Bilirubin 0.9 AST 38 ALT 55 Alkaline Phosphatase 86 Total Protein 8.0 Albumin 4.4 Globulin 3.6 Albumin/Globulin Ratio 1.2 Procalcitonin 04/09/18 12:00 WBC RBC Hgb Hct MCV MCH MCHC RDW Plt Count Neut % (Auto) Lymph % (Auto) [place] % (Auto) Eos % (Auto) Baso % (Auto) Neut # (Auto) Lymph # (Auto) [place] # (Auto) Eos # (Auto) Baso # (Auto) Sodium Potassium Chloride Carbon Dioxide BUN Creatinine Estimated GFR BUN/Creatinine Ratio Glucose Lactate Calcium Total Bilirubin AST ALT Alkaline Phosphatase Total Protein Albumin Globulin Albumin/Globulin Ratio Procalcitonin < 0.05 I personally reviewed his CT scan of the abdomen and pelvis done yesterday in the emergency department. Images were done with rectal contrast. Findings are as above but the study is otherwise normal. Assessment & Plan Assessment & Plan narrative: 53-year-old male with progressive pain and perianal edema consistent with perirectal abscess. He also has an inflamed external hemorrhoid which is likely causing symptoms as well. Small possibility of fissure or fistula but the exam is quite limited here in the emergency department due to patient discomfort. I therefore recommended examination under anesthesia, anoscopy, hemorrhoidectomy of the external component, incision and drainage of the abscess, and possible fistulotomy. Technical details of the procedure were discussed. He understands there will be packing in place in the abscess cavity following the completion of the procedure that he will remove in the shower tomorrow at home. I anticipate that he will be able to return home this afternoon after the procedure and follow up with me in the surgery clinic later this week. We will continue his Levaquin and Flagyl as already prescribed. I will make sure that he has adequate analgesia as well as stool softeners to limit the possibility of constipation. He understands he may not drive while taking opioid pain medications. Risks, benefits, alternatives were discussed. Risks including but not limited to anesthesia, bleeding, further infection, pain, scar, anal stricture, anal sphincter injury, fecal incontinence, chronic fistula, recurrent abscess, need for further surgery were discussed in detail. All questions were answered to his satisfaction, and he voiced understanding. Consent was placed on the chart. Orders were written. We will proceed this afternoon as above.
--- NOTE | 2018-04-09 14:41 | ED_ITS ---
HPI - Skin/Abscess/Foreign Bdy <LOYD Clark - Last Filed: 04/09/18 22:07> General Chief complaint: Skin/Abscess/Foreign Body Stated complaint: ANAL ABCESS,INCREASE PAIN,FEVER Time Seen by Provider: 04/09/18 12:13 Source: patient Mode of arrival: ambulatory Limitations: no limitations History of Present Illness HPI narrative: 53-year-old male with history of hypertension and is a nonsmoker here for repeat visit due to pain into the rectal area over the past several days. He was seen in the emergency room yesterday and had a CT and was diagnosed with a an anal abscess. He was placed on antibiotics and is currently awaiting to see surgical services for further treatment and surgical drainage. He reports he has increased pain and swelling to the rectal area over the past 24 hr with chills last night. He denies any drainage from the area. No trauma to the area. He reports that he has been taking his antibiotics as directed. He call the surgical office today and when he told of worsening symptoms they told her come to the emergency room. MD complaint: abscess/boil Related Data Home Medications Medication Instructions Recorded Confirmed acyclovir 400 mg PO [id number] PRN 04/09/18 04/09/18 Previous Rx's Medication Instructions Recorded levofloxacin [Levaquin] 750 mg PO DAILY #7 tab 04/08/18 metronidazole [Flagyl] 500 mg PO TID #21 tab 04/08/18 acetaminophen [Tylenol 8 Hour] 650 mg PO Q8H PRN #60 tab 04/09/18 docusate sodium [Colace] 100 mg PO BID #14 cap 04/09/18 oxycodone 5 mg PO Q3H PRN #40 tab 04/09/18 sennosides [Senokot] 8.6 mg PO BEDTIME #10 tab 04/09/18 Allergies Allergy/AdvReac Type Severity Reaction Status Date / Time No Known Drug Allergies Allergy Verified 04/09/18 11:12 Review of Systems <LOYD Clark - Last Filed: 04/09/18 22:07> Constitutional Reports chills and Denies fatigue Eyes Denies change in vision, Denies eye discharge, Denies irritation and Denies loss of vision ENT Ears, Nose, Mouth, and Throat: Denies change in voice, Denies neck pain and Denies sore throat Cardiovascular Denies dyspnea and Denies dyspnea on exertion Respiratory Denies cough, Denies dyspnea, Denies dyspnea on exertion and Denies wheezing Gastrointestinal Comments: Anal abscess Genitourinary Denies hematuria, Denies flank pain, Denies urinary incontinence and Denies urinary urgency Musculoskeletal Denies neck pain Integumentary/Breasts Denies pruritus, Denies erythema, Denies rash and Denies wounds Neurologic Denies confusion and Denies loss of vision Psychiatric Denies anxiety, Denies confusion, Denies depression, Denies homicidal ideation and Denies suicidal ideation Endocrine Denies fatigue and Denies flushing Hematologic/Lymphatic Denies easy bruising Allergic/Immunologic Denies wheezing PFSH <LOYD Clark - Last Filed: 04/09/18 22:07> Medical History No significant past surgical history (Acute) Hypertension (Chronic) Social History Smoking Status: Never smoker alcohol intake: current substance use type: does not use Social History marital status: household members: spouse occupational status: employed Smoking Status: Never smoker alcohol intake: current substance use type: does not use Exam <LOYD Clark - Last Filed: 04/09/18 22:07> Initial Vital Signs Initial Vital Signs: Vital Signs Temperature 97.6 F 04/09/18 11:10 Pulse Rate 84 04/09/18 11:10 Respiratory Rate 14 04/09/18 11:10 Blood Pressure 149/102 H 04/09/18 11:10 Pulse Oximetry 95 04/09/18 11:10 Const General: cooperative and well developed Nutritional Appearance: well nourished Orientation: alert, awake, oriented x3 and not confused [facility] Mouth: oral mucosae normal and moist mucous membranes Eyes Conjunctivae: conjunctivae normal Sclera: sclerae normal Pupils: PERRL EOM: EOM intact bilaterally Resp Effort & Inspection: normal respiratory effort, able to speak in complete sentences, no respiratory distress and no use of accessory muscles Auscultation: clear to auscultation bilaterally, no rales, no rhonchi and no wheezes Cardio Rate: regular rate Rhythm: regular rhythm Heart Sounds: no click, no gallops, no murmurs and no rubs Pulses: normal peripheral pulses GI Inspection: non-distended Palpation: soft, no hepatosplenomegaly, No guarding, No pulsatile mass and No tender Auscultation: normal bowel sounds Rectal Exam: normal sphincter tone, No hemorrhoids, No laceration, No lesions and tenderness Other: Anal/ rectal Rectal exam shows tenderness and induration to the 12:00 p.m. to the 2 o'clock position <Sydnee Bland DO - Last Filed: 04/13/18 02:45> Initial Vital Signs Initial Vital Signs: Vital Signs Temperature 97.6 F 04/09/18 11:10 Pulse Rate 84 04/09/18 11:10 Respiratory Rate 14 04/09/18 11:10 Blood Pressure 149/102 H 04/09/18 11:10 Pulse Oximetry 95 04/09/18 11:10 Course <LOYD Clark - Last Filed: 04/09/18 22:07> Orders Ordered: Discontinued Medications Albuterol (Ventolin) 2.5 mg INH NOW PRN PRN Reason: Coughing, Wheezing, Dyspnea Bupivacaine HCl (Sensorcaine 0.5% (Pf)) 30 ml INJ NOW ONE Stop: 04/09/18 16:06 Last Admin: 04/09/18 16:05 Dose: 15 ml Dibucaine (Nupercainal 1% Oint) 1 applic TOP NOW ONE Stop: 04/09/18 16:14 Last Admin: 04/09/18 16:13 Dose: 1 applic Fentanyl (Sublimaze) 50 mcg IV Q5MIN PRN PRN Reason: Pain, Moderate (4-6) Hydromorphone HCl (Dilaudid) 0.5 mg IV Q5MIN PRN PRN Reason: Pain, Moderate (4-6) Cefotetan Disodium/Dextrose (Cefotan) 2 gm in 50 mls @ 100 mls/hr IV NOW ONE Stop: 04/09/18 15:21 Last Infusion: 04/09/18 15:35 Dose: 0 mls/hr Admin: 04/09/18 15:30 Dose: 100 mls/hr Sodium Chloride (Normal Saline 0.9%) 1,000 mls @ 100 mls/hr IV CONT CAL Last Infusion: 04/09/18 17:13 Dose: 0 mls/hr Admin: 04/09/18 14:45 Dose: 100 mls/hr Lactated Ringer's (Lactated Ringers) 1,000 mls @ 42 mls/hr IV CONT CAL Lidocaine/Epinephrine (Xylocaine 1% W/Epi) 20 ml INJ NOW ONE Stop: 04/09/18 16:06 Last Admin: 04/09/18 16:06 Dose: 15 ml Meperidine HCl (Demerol) 25 mg IV Q5MIN PRN PRN Reason: Pain or shivering Last Admin: 04/09/18 16:30 Dose: 25 mg Midazolam HCl (Versed) 2 mg IV NOW ONE Stop: 04/09/18 15:11 Last Admin: 04/09/18 15:14 Dose: 2 mg Ondansetron HCl (Zofran) 4 mg IV NOW PRN PRN Reason: Nausea And Vomiting Vital Signs - 8 hr 04/09/18 14:54 04/09/18 16:27 04/09/18 16:33 Temperature 98.3 F 96.7 F L Pulse Rate 88 98 H 98 H Respiratory Rate 20 14 16 Blood Pressure 144/91 H 130/70 147/88 H Pulse Oximetry 99 99 98 04/09/18 16:37 04/09/18 16:42 04/09/18 16:47 Temperature 97.7 F Pulse Rate 95 H 88 88 Respiratory Rate 18 18 18 Blood Pressure 138/83 127/86 132/84 Pulse Oximetry 98 97 94 04/09/18 17:07 Temperature 97.7 F Pulse Rate 84 Respiratory Rate 16 Blood Pressure 121/82 Pulse Oximetry 94 <Sydnee Bland, - Last Filed: 04/13/18 02:45> Orders Ordered: Discontinued Medications Albuterol (Ventolin) 2.5 mg INH NOW PRN PRN Reason: Coughing, Wheezing, Dyspnea Bupivacaine HCl (Sensorcaine 0.5% (Pf)) 30 ml INJ NOW ONE Stop: 04/09/18 16:06 Last Admin: 04/09/18 16:05 Dose: 15 ml Dibucaine (Nupercainal 1% Oint) 1 applic TOP NOW ONE Stop: 04/09/18 16:14 Last Admin: 04/09/18 16:13 Dose: 1 applic Fentanyl (Sublimaze) 50 mcg IV Q5MIN PRN PRN Reason: Pain, Moderate (4-6) Hydromorphone HCl (Dilaudid) 0.5 mg IV Q5MIN PRN PRN Reason: Pain, Moderate (4-6) Cefotetan Disodium/Dextrose (Cefotan) 2 gm in 50 mls @ 100 mls/hr IV NOW ONE Stop: 04/09/18 15:21 Last Infusion: 04/09/18 15:35 Dose: 0 mls/hr Admin: 04/09/18 15:30 Dose: 100 mls/hr Sodium Chloride (Normal Saline 0.9%) 1,000 mls @ 100 mls/hr IV CONT CAL Last Infusion: 04/09/18 17:13 Dose: 0 mls/hr Admin: 04/09/18 14:45 Dose: 100 mls/hr Lactated Ringer's (Lactated Ringers) 1,000 mls @ 42 mls/hr IV CONT CAL Lidocaine/Epinephrine (Xylocaine 1% W/Epi) 20 ml INJ NOW ONE Stop: 04/09/18 16:06 Last Admin: 04/09/18 16:06 Dose: 15 ml Meperidine HCl (Demerol) 25 mg IV Q5MIN PRN PRN Reason: Pain or shivering Last Admin: 04/09/18 16:30 Dose: 25 mg Midazolam HCl (Versed) 2 mg IV NOW ONE Stop: 04/09/18 15:11 Last Admin: 04/09/18 15:14 Dose: 2 mg Ondansetron HCl (Zofran) 4 mg IV NOW PRN PRN Reason: Nausea And Vomiting Vital Signs - 8 hr 04/09/18 14:54 04/09/18 16:27 04/09/18 16:33 Temperature 98.3 F 96.7 F L Pulse Rate 88 98 H 98 H Respiratory Rate 20 14 16 Blood Pressure 144/91 H 130/70 147/88 H Pulse Oximetry 99 99 98 04/09/18 16:37 04/09/18 16:42 04/09/18 16:47 Temperature 97.7 F Pulse Rate 95 H 88 88 Respiratory Rate 18 18 18 Blood Pressure 138/83 127/86 132/84 Pulse Oximetry 98 97 94 04/09/18 17:07 Temperature 97.7 F Pulse Rate 84 Respiratory Rate 16 Blood Pressure 121/82 Pulse Oximetry 94 MDM - Skin/Abscess/Foreign Bdy <LOYD Clark - Last Filed: 04/09/18 22:07> Lab Data Result diagrams: 04/09/18 12:00 04/09/18 12:00 Lab Results 04/09/18 04/09/18 04/09/18 Range/Units 12:00 12:00 12:00 WBC 11.8 H (4.5-11.0) X10^3/uL RBC 4.84 (4.5-5.9) X10^6/uL Hgb 15.2 (13.5-17.5) g/dL Hct 44.4 (41-53) % MCV 91.8 (80-100) fL MCH 31.4 (26-34) PG MCHC 34.3 (30-36) % RDW 12.5 (11.6-14.8) % Plt Count 221 (150-400) X10^3/uL Neut % (Auto) 75.6 H (50-75) % Lymph % (Auto) 15.6 L (25-40) % [place] % (Auto) 7.9 (3-14) % Eos % (Auto) 0.6 L (2-4) % Baso % (Auto) 0.3 (0-2) % Neut # (Auto) 8900 H (7658-2748) /uL Lymph # (Auto) 1800 (9728-2329) /uL [place] # (Auto) 900 (0-900) /uL Eos # (Auto) 100 (0-450) /uL Baso # (Auto) 0 (0-100) /uL Sodium 137 (137-145) mmol/L Potassium 4.0 (3.4-5.1) mmol/L Chloride 101 (98-107) mmol/L Carbon Dioxide 25 (22-32) mmol/L BUN 12 (9-20) mg/dL Creatinine 0.90 (0.66-1.25) mg/dL Estimated GFR > 60.0 (>60) mL/min BUN/Creatinine Ratio 13.3 (6-22) Glucose 108 H (70-100) mg/dL Lactate 1.2 (0.7-2.1) mmol/L Calcium 9.2 (8.4-10.2) mg/dL Total Bilirubin 0.9 (0.2-1.3) mg/dL AST 38 (17-59) IU/L ALT 55 (21-72) IU/L Alkaline Phosphatase 86 (38-126) U/L Total Protein 8.0 (6.3-8.2) g/dL Albumin 4.4 (3.5-5.0) g/dL Globulin 3.6 (1.7-4.1) g/dL Albumin/Globulin Ratio 1.2 (1.0-2.8) Procalcitonin (<0.5) ng/mL 04/09/18 Range/Units 12:00 WBC (4.5-11.0) X10^3/uL RBC (4.5-5.9) X10^6/uL Hgb (13.5-17.5) g/dL Hct (41-53) % MCV (80-100) fL MCH (26-34) PG MCHC (30-36) % RDW (11.6-14.8) % Plt Count (150-400) X10^3/uL Neut % (Auto) (50-75) % Lymph % (Auto) (25-40) % [place] % (Auto) (3-14) % Eos % (Auto) (2-4) % Baso % (Auto) (0-2) % Neut # (Auto) (3389-2713) /uL Lymph # (Auto) (0118-0803) /uL [place] # (Auto) (0-900) /uL Eos # (Auto) (0-450) /uL Baso # (Auto) (0-100) /uL Sodium (137-145) mmol/L Potassium (3.4-5.1) mmol/L Chloride (98-107) mmol/L Carbon Dioxide (22-32) mmol/L BUN (9-20) mg/dL Creatinine (0.66-1.25) mg/dL Estimated GFR (>60) mL/min BUN/Creatinine Ratio (6-22) Glucose (70-100) mg/dL Lactate (0.7-2.1) mmol/L Calcium (8.4-10.2) mg/dL Total Bilirubin (0.2-1.3) mg/dL AST (17-59) IU/L ALT (21-72) IU/L Alkaline Phosphatase (38-126) U/L Total Protein (6.3-8.2) g/dL Albumin (3.5-5.0) g/dL Globulin (1.7-4.1) g/dL Albumin/Globulin Ratio (1.0-2.8) Procalcitonin < 0.05 (<0.5) ng/mL MDM Narrative Medical decision making narrative: CBC shows mildly elevated white count of 11.8. and elevated neutrophils otherwise is unremarkable. procalcitonin and lactate were unremarkable. Chemistry panel was unremarkable. Discussed case with Dr. Trisha bustamante who evaluated patient and his taking patient to the operating room today. Patient is admitted to the hospital via OR <Sydnee Bland DO - Last Filed: 04/13/18 02:45> Lab Data Lab Results 04/09/18 04/09/18 04/09/18 Range/Units 12:00 12:00 12:00 WBC 11.8 H (4.5-11.0) X10^3/uL RBC 4.84 (4.5-5.9) X10^6/uL Hgb 15.2 (13.5-17.5) g/dL Hct 44.4 (41-53) % MCV 91.8 (80-100) fL MCH 31.4 (26-34) PG MCHC 34.3 (30-36) % RDW 12.5 (11.6-14.8) % Plt Count 221 (150-400) X10^3/uL Neut % (Auto) 75.6 H (50-75) % Lymph % (Auto) 15.6 L (25-40) % [place] % (Auto) 7.9 (3-14) % Eos % (Auto) 0.6 L (2-4) % Baso % (Auto) 0.3 (0-2) % Neut # (Auto) 8900 H (4883-4167) /uL Lymph # (Auto) 1800 (9203-9750) /uL [place] # (Auto) 900 (0-900) /uL Eos # (Auto) 100 (0-450) /uL Baso # (Auto) 0 (0-100) /uL Sodium 137 (137-145) mmol/L Potassium 4.0 (3.4-5.1) mmol/L Chloride 101 (98-107) mmol/L Carbon Dioxide 25 (22-32) mmol/L BUN 12 (9-20) mg/dL Creatinine 0.90 (0.66-1.25) mg/dL Estimated GFR > 60.0 (>60) mL/min BUN/Creatinine Ratio 13.3 (6-22) Glucose 108 H (70-100) mg/dL Lactate 1.2 (0.7-2.1) mmol/L Calcium 9.2 (8.4-10.2) mg/dL Total Bilirubin 0.9 (0.2-1.3) mg/dL AST 38 (17-59) IU/L ALT 55 (21-72) IU/L Alkaline Phosphatase 86 (38-126) U/L Total Protein 8.0 (6.3-8.2) g/dL Albumin 4.4 (3.5-5.0) g/dL Globulin 3.6 (1.7-4.1) g/dL Albumin/Globulin Ratio 1.2 (1.0-2.8) Procalcitonin (<0.5) ng/mL 04/09/18 Range/Units 12:00 WBC (4.5-11.0) X10^3/uL RBC (4.5-5.9) X10^6/uL Hgb (13.5-17.5) g/dL Hct (41-53) % MCV (80-100) fL MCH (26-34) PG MCHC (30-36) % RDW (11.6-14.8) % Plt Count (150-400) X10^3/uL Neut % (Auto) (50-75) % Lymph % (Auto) (25-40) % [place] % (Auto) (3-14) % Eos % (Auto) (2-4) % Baso % (Auto) (0-2) % Neut # (Auto) (7578-8427) /uL Lymph # (Auto) (1430-4639) /uL [place] # (Auto) (0-900) /uL Eos # (Auto) (0-450) /uL Baso # (Auto) (0-100) /uL Sodium (137-145) mmol/L Potassium (3.4-5.1) mmol/L Chloride (98-107) mmol/L Carbon Dioxide (22-32) mmol/L BUN (9-20) mg/dL Creatinine (0.66-1.25) mg/dL Estimated GFR (>60) mL/min BUN/Creatinine Ratio (6-22) Glucose (70-100) mg/dL Lactate (0.7-2.1) mmol/L Calcium (8.4-10.2) mg/dL Total Bilirubin (0.2-1.3) mg/dL AST (17-59) IU/L ALT (21-72) IU/L Alkaline Phosphatase (38-126) U/L Total Protein (6.3-8.2) g/dL Albumin (3.5-5.0) g/dL Globulin (1.7-4.1) g/dL Albumin/Globulin Ratio (1.0-2.8) Procalcitonin < 0.05 (<0.5) ng/mL Discharge Plan Departure Patient Disposition: Admitted As Inpatient Clinical Impression: Abscess of anal or rectal region Discharge Date/Time: 04/09/18 14:42 Interventions: ED Discharge Assessment Last Done: 04/09/18 14:42 <Sydnee Bland DO - Last Filed: 04/13/18 02:45> Cosign ED Attending Cosignature Attestation: I was immediately available in the department for consultation. This documentation has been reviewed and I agree with assessment and plan. Supervised by Sydnee Bland DO
[2018-04-09] MEDS: SODIUM CHLORIDE 0.9% 1,000 ML 100 ML IV (14:45)
[2018-04-09] MEDS: MIDAZOLAM 2 MG/2 ML VIAL IV (15:14)
--- NOTE | 2018-04-09 15:20 | SUR.OPER ---
Prone on padded OR bed, head in foam head support, gel chest rolls, gel pad under knees, pillow under lower legs, toes free of pressure, arms secured on padded arm boards at <90 degrees abduction. Safety belt at thigh.
[2018-04-09] MEDS: CEFOTETAN 2 GM/50 ML PIGGYBACK IV (15:30)
[2018-04-09] MEDS: BUPIVACAINE 0.5% (PF) VIAL 30 ML INJ (16:05)
[2018-04-09] MEDS: LIDOCAINE 1% W/EPI INJ 20 ML INJ (16:06)
[2018-04-09] MEDS: DIBUCAINE 1% OINT 28 GM 1 APPLIC TOP (16:13)
[2018-04-09] MEDS: MEPERIDINE 50 MG/ML 25 MG IV (16:30)
--- NOTE | 2018-04-09 16:42 | PM.OP.1 ---
Operative Date/Time/Diagnoses Date of procedure: 04/09/18 Time of procedure: 16:42 Pre-op diagnosis: Perirectal abscess with enlarged inflamed external hemorrhoid Post-op diagnosis: other (Perianal abscess in the posterior midline with fistula in ANO and inflamed posterior external hemorrhoid) Procedure & Clinicians Procedure: 1. Examination under anesthesia 2. Anoscopy 3. External hemorrhoidectomy 4. Anal Fistulotomy 5. Incision and drainage of perirectal abscess Same procedure as scheduled: Yes Indications: 53-year-old male who presented to the emergency department for the 2nd time in 2 days earlier this afternoon with progressive perianal pain and swelling. Examination was consistent with probable abscess. He was recommended to undergo examination under anesthesia with drainage. Surgeon: Gus Rico Click Yes if Unassisted: Yes Anesthesia Type: General Operative Notes Findings: 1. 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 Grade 2 internal hemorrhoids without evidence of thrombosis or inflammation 3. Perianal abscess in the posterior midline overlying the coccyx in conjunction with anal fistula 4. Enlarged inflamed but not thrombosed external hemorrhoid overlying perianal abscess 5. Normal-appearing distal rectal mucosa without inflammation or other abnormalities Closure Type: not applicable Specimen(s): other (Abscess fluid for culture) Applied: other (1/2 inch plain gauze packing into abscess cavity) Estimated Blood Loss (mL): 15 Blood products transfused: none Procedure in detail: After obtaining informed consent the patient was brought to the operating room and left supine on the gurney. After satisfactory induction of anesthesia he was placed on the operating room table in prone hitesh-knife position. All pressure points were padded appropriately. SCOAP time out was performed per standard protocol. Buttocks were taped apart and the anal area was prepped and draped in usual sterile fashion. Digital rectal examination was then performed with findings as above. Abscess cavity was palpable between the anoderm and the level of the coccyx. No other masses or abnormalities were appreciated. The Manriquez bivalve anoscope was inserted and anoscopy was then performed. Findings are as above. Lacrimal probe was then used to define the fistula tract with immediate expression of gross pus. Specimen was sent for culture. Area was infiltrated with a 1-1 mixture 1% lidocaine with 1:100,000 epinephrine and 0.5% plain Marcaine for postoperative analgesia as well as hemostasis. Enlarged inflamed external hemorrhoid was secured with an Allis clamp and excised in conjunction with the anoderm at the level of the abscess using 15 scalpel blade. Combination of the Bovie and Metzenbaum scissors were used to open the abscess cavity with expression of gross pus. Hemostat was used to probe the abscess cavity to ensure that all loculations and tracks and been adequately drained. Great care was taken avoid injury to the anal sphincter muscles. Fistulotomy was then performed with the Bovie overlying the probe to allow for adequate drainage. Hemostasis was achieved with the Bovie. Great care again was taken avoid injury to the anal sphincter muscle. A large piece of Gel-Foam impregnated with dibucaine ointment was then placed in the anorectal canal for hemostasis and postoperative analgesia after securing hemostasis with the Bovie. 1/2 inch plain gauze packing was then inserted into the abscess cavity and left at an appropriate length for its removal within 1-2 days. Again, hemostasis was verified and a sterile dressing was applied. Patient was returned to the supine position on the gurney and anesthesia was reversed. Patient was extubated in the operating room and taken recovery in stable condition. Complications: none Condition: stable Disposition: PACU Plan for aftercare: 1. Discharge home 2. Wound care instructions provided 3. Follow up in surgery Clinic in 3 days
--- NOTE | 2018-04-09 17:20 | SUR.PHASEII ---
Desires discharge home. Reports comfort. Supplies given to help deal with wounds.
== END 2018-04-09 17:21 | disposition home or self-care (01) ==
LOC: ED 14:01 → OR 14:36
PROVIDERS: Emergency Provider Nurse Practitioner Family; Visit Provider Surgery
PROC: (CPT 46040; principal; 2018-04-09 16:45)
PROC: (CPT 46270; 2018-04-09 16:45)
DX: K61.0 Anal abscess (principal); K64.1 Second degree hemorrhoids; K64.4 Residual hemorrhoidal skin tags; I10 Essential (primary) hypertension
CPT/HCPCS: 46270; 46999; 36591; 80053; 83605; 84145; 85025; 87070; 87075; 87077; 87186; 87205; 99283; J0330; J1100; J2175; J2250; J2405; J2704; J3010